=== PATIENT | female | born 2000 | race Hispanic/Latino ===

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

== ENCOUNTER 2019-01-31 22:24 | Emergency (ER) | payer MEDICAID ==
[~2019-01-31] VITALS: Ht 157.5 cm; Wt 67.8 kg
[2019-01-31] MEDS ORDERED: ORPHENADRINE C100 MG PO (23:26)
[2019-01-31] MEDS ORDERED: IBUPROFEN600 MG PO (23:26)
[2019-01-31 23:30] VITALS: BP 132/72
== END 2019-01-31 23:30 | disposition home or self-care (01) ==
LOC: ED 22:24
DX: S16.1XXA Strain of muscle, fascia and tendon at neck level, initial encounter (principal); M54.2 Cervicalgia; V43.62XA Car passenger injured in collision with other type car in traffic accident, initial encounter; W22.12XA Striking against or struck by front passenger side automobile airbag, initial encounter; Y92.414 Local residential or business street as the place of occurrence of the external cause

== ENCOUNTER 2019-08-08 20:38 | Emergency (ER) | payer MEDICAID ==
[~2019-08-08] VITALS: Ht 157.5 cm; Wt 60.6 kg
[~2019-08-08 20:38] MED LIST changes: +IBUPROFEN600 MG PO; +ORPHENADRINE C100 MG PO
[2019-08-08 21:30] LABS: URINE BILIRUBIN - DIPSTICK NEGATIVE (NEGATIVE); URINE BLOOD DIPSTICK NEGATIVE (NEGATIVE); URINE COLOR YELLOW; URINE GLUCOSE - DIPSTICK NEGATIVE (NEGATIVE); URINE KETONE TRACE mg/dL (NEGATIVE); URINE LEUK ESTERASE SMALL (NEGATIVE); URINE NITRITE - DIPSTICK NEGATIVE (Negative); URINE PROTEIN - DIPSTICK NEGATIVE (NEG-TRACE); URINE SPECIFIC GRAVITY >=1.030; URINE UROBILINOGEN - DIPSTICK 0.2 E.U./dL (0.2)
[2019-08-08 21:42] LABS: URINE SQUAMOUS EPITHELIAL CELL FEW EPI/hpf (0-FEW)
[2019-08-08] MEDS ORDERED: MACRODANTIN100 MG PO (21:58)
[2019-08-08] MEDS ORDERED: VITA-NATAL PO (21:58)
[2019-08-08 22:20] VITALS: BP 115/66
== END 2019-08-08 22:22 | disposition home or self-care (01) ==
LOC: ED 20:38
PROVIDERS: Family Medicine
DX: G89.29 Other chronic pain (principal); M54.5 Low back pain; O23.40 Unspecified infection of urinary tract in pregnancy, unspecified trimester; Z3A.00 Weeks of gestation of pregnancy not specified; B95.62 Methicillin resistant Staphylococcus aureus infection as the cause of diseases classified elsewhere

== ENCOUNTER 2019-11-15 | Emergency (ER) | payer MEDICAID ==
[~2019-11-15] MED LIST changes: +MACRODANTIN100 MG PO; +VITA-NATAL PO
[2019-11-15 11:53] LABS: HEMATOCRIT 33.9 % (37.0-47.0); HEMOGLOBIN 10.4 g/dl (12.0-16.0); IMMATURE GRANULOCYTES 0.6 % (0.0-5.0); MEAN CELL VOLUME 75.8 fL CALC (80.0-100.0); MEAN CORPUSCULAR HGB 23.3 pG CALC (26.0-32.0); MEAN CORPUSCULAR HGB CONC 30.7 g/L CALC (32.0-36.0); NEUT# 5.22 thou/uL (2.00-7.15); RED BLOOD COUNT 4.47 mill/uL (4.20-5.60); RED CELL DISTRI WIDTH 18.7 % (11.5-15.5)
[2019-11-15 12:07] LABS: URINE BILIRUBIN - DIPSTICK NEGATIVE (NEGATIVE); URINE BLOOD DIPSTICK NEGATIVE (NEGATIVE); URINE COLOR YELLOW; URINE GLUCOSE - DIPSTICK NEGATIVE (NEGATIVE); URINE KETONE NEGATIVE (NEGATIVE); URINE LEUK ESTERASE LARGE (NEGATIVE); URINE NITRITE - DIPSTICK NEGATIVE (Negative); URINE PROTEIN - DIPSTICK NEGATIVE (NEG-TRACE); URINE SPECIFIC GRAVITY 1.015; URINE UROBILINOGEN - DIPSTICK 0.2 E.U./dL (0.2)
[2019-11-15 12:13] LABS: URINE BACTERIA FEW hpf; URINE SQUAMOUS EPITHELIAL CELL FEW EPI/hpf (0-FEW); URINE WBC TNTC WBC/hpf (0-5)
[2019-11-15 12:24] LABS: ALBUMIN 3.6 g/dL (3.2-5.0); ALKALINE PHOSPHATASE 112 u/l (38-126); BILIRUBIN, TOTAL 0.2 mg/dL (0.0-1.4); BUN 7 mg/dL (7-17); BUN/CREATININE RATIO 21 (12-20 (CALC)); CARBON DIOXIDE 23 mmol/l (22-30); CHLORIDE 105 mmol/l (95-108); CREATININE 0.3 mg/dL (0.5-1.0); GFR > 60 ML/MIN (>=60 (CALC)); GFR FOR AFR.AMER. > 60 ML/MIN (>=60 (CALC)); LIPASE 75 u/l (23-300); POTASSIUM 4.1 mmol/l (3.5-5.1); SGOT/AST 20 u/l (14-36); TOTAL PROTEIN 7.1 g/dL (6.3-8.2)
[2019-11-15 12:29] LABS: ANION GAP 12 (6-22 (CALC)); SODIUM 136 mmol/l (137-146)
[2019-11-15] MEDS ORDERED: KEFLEX500 M1 PO ×2 (13:11)
== END 2019-11-15 13:22 | disposition home or self-care (01) ==
DX: O23.43 Unspecified infection of urinary tract in pregnancy, third trimester (principal); Z3A.30 30 weeks gestation of pregnancy

== ENCOUNTER 2019-11-17 | Emergency (ER) | payer MEDICAID ==
[~2019-11-17] MED LIST changes: +KEFLEX500 M1 PO
[2019-11-17] MEDS ORDERED: ONDANSETRON4 MG PO ×2 (23:37)
== END 2019-11-18 00:01 | disposition home or self-care (01) ==
DX: O99.613 Diseases of the digestive system complicating pregnancy, third trimester (principal); R11.2 Nausea with vomiting, unspecified; R19.7 Diarrhea, unspecified; Z3A.29 29 weeks gestation of pregnancy

== ENCOUNTER 2020-04-26 15:58 | Emergency (ER) | payer MEDICAID ==
[~2020-04-26] VITALS: Ht 157.5 cm; Wt 65.9 kg
[~2020-04-26 15:58] MED LIST changes: +ONDANSETRON4 MG PO
[2020-04-26] MEDS ORDERED: IRON325 M1 PO (16:52)
[2020-04-26 17:27] LABS: HEMATOCRIT 35.1 % (37.0-47.0); HEMOGLOBIN 10.7 g/dl (12.0-16.0); IMMATURE GRANULOCYTES 0.2 % (0.0-5.0); MEAN CELL VOLUME 77.3 fL CALC (80.0-100.0); MEAN CORPUSCULAR HGB 23.6 pG CALC (26.0-32.0); MEAN CORPUSCULAR HGB CONC 30.5 g/dL CAL (32.0-36.0); NEUT# 4.04 thou/uL (2.00-7.15); RED BLOOD COUNT 4.54 mill/uL (4.20-5.60); RED CELL DISTRI WIDTH 17.6 % (11.5-15.5)
[2020-04-26 17:31] LABS: URINE BILIRUBIN - DIPSTICK NEGATIVE (NEGATIVE); URINE BLOOD DIPSTICK SMALL (NEGATIVE); URINE COLOR YELLOW; URINE GLUCOSE - DIPSTICK NEGATIVE (NEGATIVE); URINE KETONE NEGATIVE (NEGATIVE); URINE LEUK ESTERASE NEGATIVE (NEGATIVE); URINE NITRITE - DIPSTICK NEGATIVE (Negative); URINE PROTEIN - DIPSTICK NEGATIVE (NEG-TRACE); URINE SPECIFIC GRAVITY 1.025; URINE UROBILINOGEN - DIPSTICK 0.2 E.U./dL (0.2)
[2020-04-26 17:41] LABS: ALKALINE PHOSPHATASE 103 u/l (38-126); ANION GAP 12 (6-22 (CALC)); BILIRUBIN, TOTAL 0.2 mg/dL (0.0-1.4); BUN 13 mg/dL (7-17); BUN/CREATININE RATIO 18 (12-20 (CALC)); CARBON DIOXIDE 27 mmol/l (22-30); CHLORIDE 102 mmol/l (95-108); CREATININE 0.7 mg/dL (0.5-1.0); GFR > 60 ML/MIN (>=60 (CALC)); GFR FOR AFR.AMER. > 60 ML/MIN (>=60 (CALC)); LIPASE 94 u/l (23-300); POTASSIUM 3.9 mmol/l (3.5-5.1); SGOT/AST 22 u/l (14-36); SODIUM 137 mmol/l (137-146); TOTAL PROTEIN 7.8 g/dL (6.3-8.2); URINE SQUAMOUS EPITHELIAL CELL FEW EPI/hpf (0-FEW); URINE WBC 0-2 WBC/hpf (0-5)
[2020-04-26 17:42] LABS: ALBUMIN 4.7 g/dL (3.2-5.0)
[2020-04-26 18:26] VITALS: BP 109/61
== END 2020-04-26 18:31 | disposition home or self-care (01) ==
LOC: ED 15:58
DX: R10.31 Right lower quadrant pain (principal)

== ENCOUNTER 2020-11-19 07:36 | Emergency (ER) | payer MEDICAID ==
[~2020-11-19] VITALS: Ht 157.5 cm; Wt 71.8 kg
[~2020-11-19 07:36] MED LIST changes: +IRON325 M1 PO
[2020-11-19 08:27] LABS: URINE BILIRUBIN - DIPSTICK NEGATIVE (NEGATIVE); URINE BLOOD DIPSTICK TRACE-LYSED (NEGATIVE); URINE COLOR YELLOW; URINE GLUCOSE - DIPSTICK NEGATIVE (NEGATIVE); URINE KETONE 40 mg/dL (NEGATIVE); URINE LEUK ESTERASE NEGATIVE (NEGATIVE); URINE NITRITE - DIPSTICK NEGATIVE (Negative); URINE PH 7.5 (4.5-8.0); URINE PROTEIN - DIPSTICK TRACE mg/dL (NEG-TRACE); URINE SPECIFIC GRAVITY 1.025
[2020-11-19 08:46] LABS: IMMATURE GRANULOCYTES 0.3 % (0.0-5.0); MEAN CELL VOLUME 78.4 fL CALC (80.0-100.0); MEAN CORPUSCULAR HGB 24.2 pG CALC (26.0-32.0); MEAN CORPUSCULAR HGB CONC 30.8 g/dL CAL (32.0-36.0); NEUT# 9.35 thou/uL (2.00-7.15); RED BLOOD COUNT 5.46 mill/uL (4.20-5.60); RED CELL DISTRI WIDTH 15.9 % (11.5-15.5)
[2020-11-19 08:50] LABS: HEMATOCRIT 42.8 % (37.0-47.0); HEMOGLOBIN 13.2 g/dl (12.0-16.0)
[2020-11-19 09:03] LABS: ALBUMIN 4.9 g/dL (3.2-5.0); ALKALINE PHOSPHATASE 110 u/l (38-126); ANION GAP 14 (6-22 (CALC)); BUN 11 mg/dL (7-17); BUN/CREATININE RATIO 22 (12-20 (CALC)); CARBON DIOXIDE 26 mmol/l (22-30); CHLORIDE 103 mmol/l (95-108); CREATININE 0.5 mg/dL (0.5-1.0); GFR > 60 ML/MIN (>=60 (CALC)); GFR FOR AFR.AMER. > 60 ML/MIN (>=60 (CALC)); LIPASE 63 u/l (23-300); POTASSIUM 3.3 mmol/l (3.5-5.1); SGOT/AST 19 u/l (14-36); SODIUM 140 mmol/l (137-146); TOTAL PROTEIN 8.7 g/dL (6.3-8.2)
[2020-11-19 09:06] LABS: BILIRUBIN, TOTAL 0.3 mg/dL (0.0-1.4)
[2020-11-19] MEDS ORDERED: TAM75CAP PO (09:33)
[2020-11-19] MEDS ORDERED: ZOFRAN4 M1 PO (09:35)
[2020-11-19 10:35] VITALS: BP 108/59
== END 2020-11-19 10:45 | disposition home or self-care (01) ==
LOC: ED 07:36
PROVIDERS: Family Medicine
DX: J10.1 Influenza due to other identified influenza virus with other respiratory manifestations (principal); D64.9 Anemia, unspecified; Z20.822 Contact with and (suspected) exposure to COVID-19

== ENCOUNTER 2022-05-06 13:54 | Emergency (ER) | payer MEDICAID ==
[~2022-05-06] VITALS: Ht 157.5 cm; Wt 57.0 kg
[~2022-05-06 13:54] MED LIST changes: +TAM75CAP PO; +ZOFRAN4 M1 PO
[2022-05-06 15:47] VITALS: BP 102/60
== END 2022-05-06 15:48 | disposition home or self-care (01) ==
LOC: ED 13:54
DX: U07.1 COVID-19 (principal); M54.9 Dorsalgia, unspecified; R51.9 Headache, unspecified